=== PATIENT | male | born 1975 | race American Indian/Alaskan Native ===

== ENCOUNTER 2022-02-20 21:10 | Emergency (ER) | payer SELFPAY ==
[2022-02-21] MEDS ORDERED: LIDOCAINE-MPF (1%) 10 MG/1 ML VIAL 5 ML INFILTRATI ONE (01:31)
[2022-02-21 01:50] LABS: Bacteria,Urine 1+ /HPF (Negative); Bilirubin,Urine NEG (Negative); Blood,Urine NEG (Negative); Color,Urine Yellow (Yellow); Mucus,Urine 1+ /HPF; Protein,Urine <15 mg/dL mg/dL (Negative)
--- NOTE | 2022-02-21 02:16 | Emergency Department Report ---
ED Male HPI - General Chief complaint: Urogenital-Male Stated complaint: ABDOMINAL PAIN Source: patient Mode of arrival: Ambulatory Limitations: No Limitations - History of Present Illness Initial comments: Patient is a 46-year-old -[place] male with no past medical history presents to the ED with complaint of acute onset persistent dysuria, urinary frequency and urgency and penile discharge for the last 1 week. Patient admits to having had unprotected sexual intercourse with one of his sexual partners who confessed to him that she had been diagnosed with and got treated for chlamydia and trichomonas. Patient denies testicular pain, hematuria, fever, chills, nausea and vomiting, abdominal pain, back pain, chest pain or shortness of breath. MD Complaint: penile discharge, dysuria -: Sudden, week(s) (1) Location: penis Radiation: none Severity: moderate Severity scale (0 -10): 4 Quality: burning Consistency: intermittent Improves with: none Worsens with: urination denies other symptoms, discharge, dysuria. denies: swelling, mass, rash, urinary retention, blood in urine, fever, nausea/vomiting, incontinence - Related Data Sexually active: Yes Previous Rx's Medication Instructions Recorded Last Taken Type Doxycycline Hyclate 100 mg PO Q12H #20 cap 02/21/22 Unknown Rx metroNIDAZOLE [Flagyl] 2,000 mg PO ONCE #4 tab 02/21/22 Unknown Rx Allergies Allergy/AdvReac Type Severity Reaction Status Date / Time shellfish derived Allergy Anaphylaxis Verified 02/20/22 21:30 ED Review of Systems ROS: Stated complaint: ABDOMINAL PAIN Other details as noted in HPI Constitutional: denies: chills, fever Eyes: denies: eye pain, eye discharge, vision change ENT: denies: ear pain, throat pain Respiratory: denies: cough, shortness of breath, wheezing Cardiovascular: denies: chest pain, palpitations Endocrine: no symptoms reported Gastrointestinal: denies: abdominal pain, nausea, vomiting, diarrhea, constipation, hematemesis Genitourinary: urgency, dysuria, frequency, discharge. denies: testicular pain, testicular mass Musculoskeletal: denies: back pain, joint swelling, arthralgia Skin: denies: rash, lesions Neurological: denies: headache, weakness, paresthesias Psychiatric: denies: anxiety, depression Hematological/Lymphatic: denies: easy bleeding, easy bruising ED Past Medical Hx - Medications Home Medications: Home Medications Medication Instructions Recorded Confirmed Last Taken Type Doxycycline Hyclate 100 mg PO Q12H #20 cap 02/21/22 Unknown Rx metroNIDAZOLE [Flagyl] 2,000 mg PO ONCE #4 tab 02/21/22 Unknown Rx ED Physical Exam - General Limitations: No Limitations General appearance: alert, in no apparent distress - Head Head exam: Present: atraumatic, normocephalic, normal inspection - Eye Eye exam: Present: normal appearance, PERRL, EOMI Pupils: Present: normal accommodation - ENT ENT exam: Present: normal exam, normal orophraynx, mucous membranes moist, TM's normal bilaterally, normal external ear exam - Neck Neck exam: Present: normal inspection, full ROM. Absent: tenderness - Respiratory Respiratory exam: Present: normal lung sounds bilaterally. Absent: respiratory distress, wheezes, rales, rhonchi, chest wall tenderness, accessory muscle use, decreased breath sounds, prolonged expiratory - Cardiovascular Cardiovascular Exam: Present: regular rate, normal rhythm, normal heart sounds. Absent: systolic murmur, diastolic murmur, rubs, gallop - GI/Abdominal GI/Abdominal exam: Present: soft, normal bowel sounds. Absent: tenderness, guarding, rebound, hyperactive bowel sounds, hypoactive bowel sounds, organomegaly - External exam: Present: other (Genital exam deferred at this time) - Extremities Exam Extremities exam: Present: normal inspection, full ROM, normal capillary refill - Back Exam Back exam: Present: normal inspection, full ROM. Absent: tenderness, CVA tenderness (R), CVA tenderness (L), muscle spasm, paraspinal tenderness, vertebral tenderness - Neurological Exam Neurological exam: Present: alert, oriented X3, CN II-XII intact, normal gait, reflexes normal - Psychiatric Psychiatric exam: Present: normal affect, normal mood - Skin Skin exam: Present: warm, dry, intact, normal color. Absent: rash ED Course Vital Signs 02/20/22 21:33 Temperature 98.2 F Pulse Rate 76 Respiratory 16 Rate Blood Pressure 129/75 O2 Sat by Pulse 97 Oximetry ED Medical Decision Making - Medical Decision Making This is a 46-year-old -[place] male with no past medical history presents to the ED with complaint of acute onset persistent dysuria, urinary frequency and urgency and penile discharge for the last 1 week. Patient admits to having had unprotected sexual intercourse with one of his sexual partners who confessed to him that she had been diagnosed with and got treated for chlamydia and trichomonas. In the ED, patient is alert and oriented x3 and is not in any distress. Urinalysis showed significant urinary tract infection consistent with STD in a male of his age. Based on the history and lab test results, patient was empirically treated with Rocephin in the ED and discharged home on antibiotics doxycycline and Flagyl. Patient was advised to follow-up with the [facility] for further STD testing including HIV and syphilis. Patient was counseled on importance of observing safe sexual practices and to ensure that all his sexual partners get tested and treated at the [facility]. Patient was advised return to the ED immediately if symptoms get worse. - Differential Diagnosis STD; urethritis; gonorrhea; chlamydia; trichomonas; UTI Critical care attestation.: If time is entered above; I have spent that time in minutes in the direct care of this critically ill patient, excluding procedure time. ED Disposition Clinical Impression: Urethritis, nonspecific, Chlamydial urethritis in male, Trichomonas exposure, STD (sexually transmitted disease), Acute urinary tract infection Disposition: 01 HOME / SELF CARE / HOMELESS Is pt being admited?: No Does the pt Need Aspirin: No Condition: Stable Instructions: Urethritis, Adult, Urinary Tract Infection, Adult, [id number], Safe Sex, Trichomoniasis, Chlamydia, Male Additional Instructions: Take medication with food, drink plenty of fluids and follow-up with the [facility] for further STD testing including HIV and syphilis. Ensure that your sexual partners get treated for the same as well. Observe safe sexual practices. Return to the ED immediately if symptoms get worse. Prescriptions: Doxycycline Hyclate 100 mg PO Q12H #20 cap metroNIDAZOLE [Flagyl] 2,000 mg PO ONCE #4 tab Referrals: [facility] [Outside] - 3-5 Days Forms: STI Treatment and Prevention Time of Disposition: 02:16 Print Language: CANADIAN
[2022-02-21 02:53] VITALS: BP 130/70
== END 2022-02-21 02:52 | disposition home or self-care (01) ==
LOC: ED 21:10
DX: A56.01 Chlamydial cystitis and urethritis (principal); A59.9 Trichomoniasis, unspecified; N39.0 Urinary tract infection, site not specified; A64 Unspecified sexually transmitted disease; Z91.013 Allergy to seafood; Z79.899 Other long term (current) drug therapy
CPT/HCPCS: 81001; 87086; 96372; 99283; J0696; J3490